=== PATIENT | male | born 1935 | race Caucasian/White ===

== ENCOUNTER 2017-03-30 10:09 | Emergency (ER) | payer MEDICARE ==
[~2017-03-30] VITALS: Ht 167.6 cm; Wt 72.6 kg
[2017-03-30] MEDS ORDERED: SAXA2.5T PO (11:44)
[2017-03-30] MEDS ORDERED: Ferrous Sulfat325 MG PO (11:45)
[2017-03-30] MEDS ORDERED: SPIR25 PO (11:47)
[2017-03-30] MEDS ORDERED: Omeprazole20 M1 PO (11:49)
[2017-03-30] MEDS ORDERED: Robaxin500 MG PO (13:00)
[2017-03-30] MEDS ORDERED: Acetaminophen-1 EAC1 PO (13:00)
[2017-03-30] MEDS ORDERED: METPRE4DP PO (13:00)
== END 2017-03-30 13:17 | disposition home or self-care (01) ==
LOC: ER 10:09
DX: M54.16 Radiculopathy, lumbar region (principal); Z91.011 Allergy to milk products; Z79.899 Other long term (current) drug therapy
CPT/HCPCS: 72100; 99284

== ENCOUNTER 2018-12-05 12:54 | Inpatient (IN) | payer MEDICARE ==
[~2018-12-05] VITALS: Ht 175.3 cm; Wt 68.0 kg
[~2018-12-05 12:54] MED LIST: Acetaminophen-1 EAC1 PO; Ferrous Sulfat325 MG PO; METPRE4DP PO; Omeprazole20 M1 PO; Robaxin500 MG PO; SAXA2.5T PO; SPIR25 PO
[2018-12-05 13:24] LABS: BASOPHILS ABSOLUTE AUTO 0.05 K/mm3 (0.00-0.23); BASOPHILS PERCENT AUTO 1 % (0-2); EOSINOPHILS ABSOLUTE AUTO 0.07 K/mm3 (0.00-0.68); EOSINOPHILS PERCENT AUTO 1 % (0-6); Hematocrit 30.2 % (37.0-53.0); Hemoglobin 8.3 g/dL (13.5-17.5); IMMATURE GRAN ABSOLUTE AUTO 0.04 K/mm3 (0.00-0.10); IMMATURE GRAN PERCENT AUTO 1 % (0-1); LYMPHOCYTES ABSOLUTE AUTO 0.49 K/mm3 (0.84-5.20); LYMPHOCYTES PERCENT AUTO 6 % (21-46); MONOCYTES ABSOLUTE AUTO 0.65 K/mm3 (0.16-1.47); MONOCYTES PERCENT AUTO 8 % (4-13); Mean Corpuscular HGB 20.3 pg (26.0-34.0); Mean Corpuscular HGB Conc 27.5 g/dL (31.5-36.5); Mean Corpuscular Volume 74 fL (80-100); NEUTROPHILS ABSOLUTE AUTO 6.67 K/mm3 (1.96-9.15); NEUTROPHILS PERCENT AUTO 84 % (41-73); RDW Coefficient Variation 19.6 % (11.7-14.2); RDW Standard Deviation 52.5 fL (35.1-46.3); Red Blood Cell Count 4.08 M/mm3 (4.30-5.90); White Blood Cell Count 7.97 K/mm3 (4.00-11.30)
[2018-12-05 13:27] LABS: Platelet Count 138 K/mm3 (150-400)
[2018-12-05 13:43] LABS: Alanine Aminotransfer (ALT/SGP 15 U/L (12-78); Albumin, Blood 3.5 g/dL (3.4-5.0); Albumin/Globulin Ratio 0.9 (0.8-1.8); Alk Phos 70 U/L (50-136); Anion Gap 9 mmol/L (6-16); Aspartate Aminotrans (AST/SGOT 21 U/L (12-37); Bilirubin, Total 0.8 mg/dL (0.1-1.0); Blood Urea Nitrogen 15 mg/dL (8-24); Bun/Creatinine Ratio 13.2 (12.0-20.0); CO2, Blood 19 mmol/L (21-32); Calcium, Blood 8.6 mg/dL (8.5-10.1); Chloride, Blood 106 mmol/L (98-108); Creatinine, Blood 1.14 mg/dL (0.60-1.20); Globulin, Blood 3.8 g/dL (2.2-4.0); Glomerular Filtration Rate >60 (60-); Glucose, Blood 210 mg/dL (70-99); Potassium, Blood 3.8 mmol/L (3.5-5.5); Sodium, Blood 134 mmol/L (136-145); Total Protein, Blood 7.3 g/dL (6.4-8.2)
--- NOTE | 2018-12-05 16:34 | NUR ---
Echocardiogram using 0.45ml of Definity contrast performed.
[2018-12-05 17:29] LABS: Thyroid Stimulating Hormone 2.6 uIU/mL (0.360-4.800)
--- NOTE | 2018-12-05 18:00 | NUR ---
SHIFT SUMMARY: PT ARRIVED TO ROOM FROM ER VIA STRETCHER AND WAS ASSISTED TO BED. PT DISPLAYED SHORTNESS OF BREATH BUT HIS O2 SATURATIONS WERE IN THE HIGH 90'S. SKIN TONE WAS PALE. PT IS A/O X 4 AND ANSWERS ALL QUESTIONS APPROPRIATELY, HE DENIES PAIN. PT WAS ORIENTED TO HIS ROOM, CALL LIGHT AND NURSING STAFF. HE IS ABLE TO MAKE NEEDS KNOWN. PT IS RESTING IN BED.
--- NOTE | 2018-12-06 05:57 | NUR ---
SHIFT SUMMARY PT RECIEVED 1 UNIT PRBCs W/O DIFFICULTY. VSS, NO SIGNS OF ADVERSE REACTION INDICATED. LUNG BASES WITH CRACKLES BEFORE TRANSFUSION AND AFTER, HOWEVER, HAVE DECREASED T/O NIGHT. PT WITH GOOD URINARY OUTPUT, SEE I/O. PT USES PENILE CLAMP TO CONTROL INCONTINENCE R/T PANCREATIC CANCER. MANAGES INDEPENDENTLY. PT ON 2L VIA NC FOR COMFORT. PT REPORTS FEELING " SO MUCH BETTER", AND IS NOT SOB. ABLE TO AMBULATE TO BSC WITHOUT BECOMING SOB. O2 SATS REMAIN WNL. NO EDEMA NOTED. CRITICALLY HIGH TROPONIN TONIGHT OF 2.96, PT ASYMPTOMATIC, NO TELEMETRY CHANGES. KOFI JIANG NOTIFIED AND NO NEW ORDERS GIVEN. WILL CONT TO MONITOR AND PROVIDE CARE UNTIL PRESUMED BY ONCOMING RN.
[2018-12-06 07:26] LABS: BASOPHILS ABSOLUTE AUTO 0.04 K/mm3 (0.00-0.23); BASOPHILS PERCENT AUTO 1 % (0-2); EOSINOPHILS ABSOLUTE AUTO 0.17 K/mm3 (0.00-0.68); EOSINOPHILS PERCENT AUTO 4 % (0-6); Hematocrit 30.8 % (37.0-53.0); IMMATURE GRAN ABSOLUTE AUTO 0.02 K/mm3 (0.00-0.10); IMMATURE GRAN PERCENT AUTO 0 % (0-1); LYMPHOCYTES ABSOLUTE AUTO 0.89 K/mm3 (0.84-5.20); LYMPHOCYTES PERCENT AUTO 18 % (21-46); MONOCYTES ABSOLUTE AUTO 0.59 K/mm3 (0.16-1.47); MONOCYTES PERCENT AUTO 12 % (4-13); Mean Corpuscular HGB 20.6 pg (26.0-34.0); Mean Corpuscular HGB Conc 29.2 g/dL (31.5-36.5); NEUTROPHILS ABSOLUTE AUTO 3.13 K/mm3 (1.96-9.15); NEUTROPHILS PERCENT AUTO 65 % (41-73); Platelet Count 97 K/mm3 (150-400); RDW Coefficient Variation 19.1 % (11.7-14.2); RDW Standard Deviation 48.2 fL (35.1-46.3); Red Blood Cell Count 4.36 M/mm3 (4.30-5.90); White Blood Cell Count 4.84 K/mm3 (4.00-11.30)
[2018-12-06 07:28] LABS: Mean Corpuscular Volume 71 fL (80-100)
[2018-12-06 08:01] LABS: Anion Gap 9 mmol/L (6-16); Blood Urea Nitrogen 15 mg/dL (8-24); CO2, Blood 21 mmol/L (21-32); Calcium, Blood 8.5 mg/dL (8.5-10.1); Chloride, Blood 109 mmol/L (98-108); Creatinine, Blood 1.07 mg/dL (0.60-1.20); Glomerular Filtration Rate >60 (60-); Glucose, Blood 115 mg/dL (70-99); Potassium, Blood 3.6 mmol/L (3.5-5.5); Sodium, Blood 139 mmol/L (136-145)
--- NOTE | 2018-12-06 18:10 | NUR ---
NO ACUTE CHANGES NOTED. PATIENT IS FEELING MUCH BETTER, HE WAS UP AND AMBULATING IN THE HALLS.SOME SHORTNESS OF BREATH STILL NOTED BUT HE STATES HE IS FEELING MUCH BETTER. NO OTHER ISSUES NOTED. WILL CONTINUE TO MONITOR FOR CHANGES.
[2018-12-07 04:45] LABS: BASOPHILS ABSOLUTE AUTO 0.03 K/mm3 (0.00-0.23); BASOPHILS PERCENT AUTO 1 % (0-2); EOSINOPHILS ABSOLUTE AUTO 0.25 K/mm3 (0.00-0.68); EOSINOPHILS PERCENT AUTO 4 % (0-6); Hematocrit 31.8 % (37.0-53.0); Hemoglobin 9.1 g/dL (13.5-17.5); IMMATURE GRAN ABSOLUTE AUTO 0.01 K/mm3 (0.00-0.10); IMMATURE GRAN PERCENT AUTO 0 % (0-1); LYMPHOCYTES ABSOLUTE AUTO 0.88 K/mm3 (0.84-5.20); LYMPHOCYTES PERCENT AUTO 14 % (21-46); MONOCYTES ABSOLUTE AUTO 0.78 K/mm3 (0.16-1.47); MONOCYTES PERCENT AUTO 13 % (4-13); Mean Corpuscular HGB 20.9 pg (26.0-34.0); Mean Corpuscular HGB Conc 28.6 g/dL (31.5-36.5); Mean Corpuscular Volume 73 fL (80-100); NEUTROPHILS ABSOLUTE AUTO 4.15 K/mm3 (1.96-9.15); NEUTROPHILS PERCENT AUTO 68 % (41-73); Platelet Count 118 K/mm3 (150-400); RDW Coefficient Variation 19.5 % (11.7-14.2); RDW Standard Deviation 50.8 fL (35.1-46.3); Red Blood Cell Count 4.36 M/mm3 (4.30-5.90)
[2018-12-07 05:08] LABS: Bun/Creatinine Ratio 15.3 (12.0-20.0); Calcium, Blood 8.7 mg/dL (8.5-10.1); Creatinine, Blood 1.31 mg/dL (0.60-1.20); Potassium, Blood 3.5 mmol/L (3.5-5.5)
--- NOTE | 2018-12-07 05:31 | NUR ---
SHIFT SUMMARY NO ACUTE EVENTS OVERNIGHT. PT IS A&OX4, INDEPENDENT IN RM. DYSPNEA HAS SIGNIFICANTLY IMPROVED PER PT REPORT. PT IS NOT DYSPNEIC WITH MOVEMENT/EXERTION ANYMORE, NOT REQUIRING O2 VIA NC ANYMORE. LS DIM T/O. VSS. DENIES PAIN OR DISCOMFORT. 2L FR MAINTAINED. WILL CONT TO MONITOR AND PROVIDE CARE UNTIL PRESUMED BY ONCOMING RN.
--- NOTE | 2018-12-07 18:16 | NUR ---
SHIFT SUMMARY NO ACUTE CHANGES. PATIENT DENIES PAIN, NAUSEA, AND SHORTNESS OF BREATH. PATIENT STATES HE IS FEELING MUCH BETTER TODAY. PATIENT UP INDEPENDENT IN ROOM. PATIENT DECLINED TO WORK WITH PT TODAY BUT DID GO FOR WALK IN HALLWAY. PROBABALE DISCHARGE TOMORROW.
[2018-12-08 04:29] LABS: BASOPHILS ABSOLUTE AUTO 0.05 K/mm3 (0.00-0.23); BASOPHILS PERCENT AUTO 1 % (0-2); EOSINOPHILS ABSOLUTE AUTO 0.31 K/mm3 (0.00-0.68); EOSINOPHILS PERCENT AUTO 5 % (0-6); Hematocrit 31.3 % (37.0-53.0); Hemoglobin 9.1 g/dL (13.5-17.5); IMMATURE GRAN PERCENT AUTO 0 % (0-1); LYMPHOCYTES ABSOLUTE AUTO 1.02 K/mm3 (0.84-5.20); LYMPHOCYTES PERCENT AUTO 16 % (21-46); MONOCYTES ABSOLUTE AUTO 0.67 K/mm3 (0.16-1.47); MONOCYTES PERCENT AUTO 11 % (4-13); Mean Corpuscular HGB 21.3 pg (26.0-34.0); Mean Corpuscular HGB Conc 29.1 g/dL (31.5-36.5); Mean Corpuscular Volume 73 fL (80-100); NEUTROPHILS ABSOLUTE AUTO 4.36 K/mm3 (1.96-9.15); NEUTROPHILS PERCENT AUTO 68 % (41-73); Platelet Count 128 K/mm3 (150-400); RDW Coefficient Variation 19.8 % (11.7-14.2); RDW Standard Deviation 52.2 fL (35.1-46.3); Red Blood Cell Count 4.28 M/mm3 (4.30-5.90); White Blood Cell Count 6.41 K/mm3 (4.00-11.30)
[2018-12-08 04:45] LABS: Bun/Creatinine Ratio 19.5 (12.0-20.0); Creatinine, Blood 1.33 mg/dL (0.60-1.20); Magnesium, Blood 1.9 mg/dL (1.6-2.4); Potassium, Blood 3.6 mmol/L (3.5-5.5)
--- NOTE | 2018-12-08 05:06 | NUR ---
SHIFT SUMMARY NO ACUTE CHANGES TONIGHT. PT IS A&OX4, INDEPENDENT IN RM. AMBULATING HALLS. RESP E/U ON RA. TELE IN PLACE; A FIB WITH RATE RANGING FROM 90-130s. LS DIM. DENIES COUGH. DENIES PAIN. WILL CONT TO MONITOR AND PROVIDE CARE UNTIL PRESUMED BY ONCOMING RN.
[2018-12-08] MEDS ORDERED: FURO40 PO (11:28)
[2018-12-08] MEDS ORDERED: Aspirin EC81 MG PO (11:28)
[2018-12-08] MEDS ORDERED: Lopressor 25 mg25 MG PO (11:29)
--- NOTE | 2018-12-08 13:59 | NUR ---
PT DISCHARGED HOME, LEFT UNIT VIA WHEELCHAIR. IV REMOVED. DISCHARGE INSTRUCTIONS PROVIDED. RX FAXED TO [facility].
== END 2018-12-08 12:00 | disposition home or self-care (01) | DRG 280 ==
LOC: ER 12:54 → MEDS 12:55 → ENPENDDIS 12-08 11:03 → MEDS 12-08 12:00
PROVIDERS: Emergency Medicine; ADMIT Internal Medicine
PROC: 30233P1 Transfusion of Nonautologous Frozen Red Cells into Peripheral Vein, Percutaneous Approach (ICD-10-PCS; principal; 2018-12-06)
DX: I50.21 Acute systolic (congestive) heart failure (principal); I21.4 Non-ST elevation (NSTEMI) myocardial infarction; J96.01 Acute respiratory failure with hypoxia; J84.9 Interstitial pulmonary disease, unspecified; I42.0 Dilated cardiomyopathy; I99.8 Other disorder of circulatory system; Z66 Do not resuscitate; I48.91 Unspecified atrial fibrillation; K21.9 Gastro-esophageal reflux disease without esophagitis; I27.20 Pulmonary hypertension, unspecified; D50.0 Iron deficiency anemia secondary to blood loss (chronic); Z87.891 Personal history of nicotine dependence
CPT/HCPCS: 36415; 36430; 71046; 71250; 80048; 80053; 82607; 82728; 82746; 83540; 83550; 83735; 83880; 84443; 84484; 85025; 86850; 86900; 86901; 86923; 93005; 93010; 96365; 96375; 96376; 99285-25; C8929; C9113; G0378; J1940; P9016; Q9957

== ENCOUNTER 2018-12-12 11:40 | Inpatient (IN) | payer MEDICARE ==
[~2018-12-12] VITALS: Ht 175.3 cm; Wt 62.5 kg
[~2018-12-12 11:40] MED LIST changes: +Aspirin EC81 MG PO; +FURO40 PO; +Lopressor 25 mg25 MG PO
[2018-12-12 12:14] LABS: BASOPHILS ABSOLUTE AUTO 0.05 K/mm3 (0.00-0.23); BASOPHILS PERCENT AUTO 1 % (0-2); EOSINOPHILS ABSOLUTE AUTO 0.13 K/mm3 (0.00-0.68); EOSINOPHILS PERCENT AUTO 2 % (0-6); Hematocrit 32.5 % (37.0-53.0); Hemoglobin 9.3 g/dL (13.5-17.5); IMMATURE GRAN ABSOLUTE AUTO 0.01 K/mm3 (0.00-0.10); IMMATURE GRAN PERCENT AUTO 0 % (0-1); LYMPHOCYTES ABSOLUTE AUTO 0.91 K/mm3 (0.84-5.20); LYMPHOCYTES PERCENT AUTO 13 % (21-46); MONOCYTES ABSOLUTE AUTO 0.86 K/mm3 (0.16-1.47); MONOCYTES PERCENT AUTO 13 % (4-13); Mean Corpuscular HGB Conc 28.6 g/dL (31.5-36.5); Mean Corpuscular Volume 73 fL (80-100); NEUTROPHILS ABSOLUTE AUTO 4.83 K/mm3 (1.96-9.15); NEUTROPHILS PERCENT AUTO 71 % (41-73); Platelet Count 186 K/mm3 (150-400); RDW Coefficient Variation 19.8 % (11.7-14.2); RDW Standard Deviation 52.3 fL (35.1-46.3); Red Blood Cell Count 4.43 M/mm3 (4.30-5.90); White Blood Cell Count 6.79 K/mm3 (4.00-11.30)
[2018-12-12 12:29] LABS: Albumin, Blood 3.8 g/dL (3.4-5.0); Bilirubin, Total 0.9 mg/dL (0.1-1.0); Bun/Creatinine Ratio 16.8 (12.0-20.0); Calcium, Blood 8.9 mg/dL (8.5-10.1); Creatinine, Blood 1.31 mg/dL (0.60-1.20); Potassium, Blood 3.9 mmol/L (3.5-5.5); Total Protein, Blood 7.8 g/dL (6.4-8.2); Troponin I 0.247 ng/mL (0.000-0.040)
--- NOTE | 2018-12-12 16:38 | NUR ---
JUNCTIONAL TACH HOT STRIP MILL SUPERVISOR INFORMED THAT PATIENT IN JUCTIONAL TACH AT 120. DR. OVIEDO INFORMED, ORDERS GIVEN TO GIVE EVENING LOPRESSOR NOW.
--- NOTE | 2018-12-12 17:57 | NUR ---
SHIFT SUMMARY ED ADMIT THIS AFTERNOON. PATIENT DENIES PAIN, NAUSEA, AND SHORTNESS OF BREATH. PATIENT SETTLED INTO ROOM. DR CALLED FOR JUNCTIONAL TACH RHYTHM OF 120, EVENING LOPRESSOR GIVEN NOW PER DR. OVIEDO. PATIENT UP SBA IN ROOM. CALL LIGHT IN REACH.
[2018-12-13 05:21] LABS: BASOPHILS ABSOLUTE AUTO 0.03 K/mm3 (0.00-0.23); BASOPHILS PERCENT AUTO 1 % (0-2); EOSINOPHILS ABSOLUTE AUTO 0.16 K/mm3 (0.00-0.68); EOSINOPHILS PERCENT AUTO 3 % (0-6); Hematocrit 29.7 % (37.0-53.0); Hemoglobin 8.6 g/dL (13.5-17.5); IMMATURE GRAN ABSOLUTE AUTO 0.02 K/mm3 (0.00-0.10); IMMATURE GRAN PERCENT AUTO 0 % (0-1); LYMPHOCYTES PERCENT AUTO 18 % (21-46); MONOCYTES ABSOLUTE AUTO 0.68 K/mm3 (0.16-1.47); MONOCYTES PERCENT AUTO 14 % (4-13); Mean Corpuscular HGB 21.3 pg (26.0-34.0); Mean Corpuscular Volume 74 fL (80-100); Mean Platelet Volume 11.3 fL (9.1-12.4); NEUTROPHILS ABSOLUTE AUTO 3.23 K/mm3 (1.96-9.15); NEUTROPHILS PERCENT AUTO 64 % (41-73); Platelet Count 135 K/mm3 (150-400); RDW Coefficient Variation 19.5 % (11.7-14.2); RDW Standard Deviation 51.8 fL (35.1-46.3); Red Blood Cell Count 4.04 M/mm3 (4.30-5.90); White Blood Cell Count 5.02 K/mm3 (4.00-11.30)
--- NOTE | 2018-12-13 05:34 | NUR ---
SHIFT SUMMARY PT CONTINUED TO REPORT THAT HE FELT SOB WHEN AWAKE, ESPECIALLY WITH ANY SORT OF EXERTION. HOWEVER, PT DID NOT APPEAR TO BE IN ANY RESPIRATORY DISTRESS. PT REMAINED ON RA WITH O2 SATS IN THE MID TO HIGH 90'S. TELEMETRY IN PLACE. PT JUNTIONAL TO JUNCTIONAL TACH THROUGHOUT THE NIGHT. WITH RATE MOSTLY IN THE LOW 100'S. PT INDEPENDENTLY USES PENILE CLAMP TO PREVENT INCONTINENCE. PT AMBULATES INDEPENDENTLY IN THE ROOM. VITAL SIGNS STABLE. NO COMPLAINTS OF PAIN. NO ACUTE CHANGES. WILL CONTINUE TO MONITOR.
[2018-12-13 05:45] LABS: Magnesium, Blood 2.2 mg/dL (1.6-2.4)
[2018-12-13 05:48] LABS: Albumin, Blood 3.4 g/dL (3.4-5.0); Albumin/Globulin Ratio 0.9 (0.8-1.8); Bilirubin, Total 0.9 mg/dL (0.1-1.0); Bun/Creatinine Ratio 18.3 (12.0-20.0); Calcium, Blood 8.7 mg/dL (8.5-10.1); Creatinine, Blood 1.26 mg/dL (0.60-1.20); Globulin, Blood 3.8 g/dL (2.2-4.0); Potassium, Blood 3.7 mmol/L (3.5-5.5); Total Protein, Blood 7.2 g/dL (6.4-8.2)
--- NOTE | 2018-12-13 16:00 | NUR ---
SHIFT SUMMARY NO ACUTE CHANGES. PATIENT DENIES PAIN AND NAUSEA. PATIENT REPORTS DYSPNEA DESPITE OXYGEN SATURATION ABOVE 95% ON ROOM AIR. PATIENT PLACED ON 2L NC FOR COMFORT. PATIENT UP INDEPENDENT IN THE ROOM. CARDIAC CONSULT CALLED IN. CALL LIGHT IN REACH.
--- NOTE | 2018-12-13 18:41 | NUR ---
PATIENT REFUSING CARE/LEAVING AMA PATIENT HAS REMOVED TELEMETRY, OXIMETRY, REQUESTED IV BE REMOVED OR HE WILL PULL IT HIMSELF, AND WOULD LIKE TO LEAVE AMA IN THE MORNING BECAUSE HE CANNOT FIND A RIDE THIS EVENING. DR. COYNE INFORMED OF PATIENT'S STATEMENTS AND REQUESTS. PATIENT STATES HE APPRECIATES OUR EFFORTS TO CARE FOR HIM BUT DOES NOT DESIRE IT ANY LONGER. PALLIATIVE CARE NURSE CONSULTED, PALLIATIVE CARE WILL TRY TO SEE PATIENT IN THE MORNING.
--- NOTE | 2018-12-13 23:22 | NUR ---
2000 PT REFUSING ALL CARE TO INCLUDE EVENING MEDICATIONS, STATED, "IM JUST GOING BACK HOME IN AM AND JUST WANT TO BE THERE"!
--- NOTE | 2018-12-14 05:34 | NUR ---
SHIFT SUMMARY: 83 Y/O MALE RESTED COMFORTABLY ALL SHIFT, REFUSED ALL CARE TO INCLUDE MEDICATIONS, VITAL SIGNS AND ALL CARE, INTENDS TO SIGN OUT OF HOSPITAL AMA TODAY WHEN DAUGHTER ARRIVES TO [facility] [employer].
--- NOTE | 2018-12-14 09:04 | NUR ---
PT IN BTHRM GETTING DRESSED TO GO AMA, DURING SHIFT REPORT. PT REFUSING AM MEDS. DR COYNE HERE TO SEE PT. PT WANTING TO GO HOME. DOES NOT WANT TO TAKE ANY MEDICATION; AM MEDS NOT GIVEN. DR COYNE GAVE VERBAL ORDER FOR PALLATIVE CARE TO SEE PT NOW. PT WANTING TO GO HOME ON HOSPICE. MARU ACUNA CALLED AND CAME TO ; SPOKE WITH DR COYNE FIRST AND NOW WITH PT.
--- NOTE | 2018-12-14 12:03 | NUR ---
INITIAL PAL CARE VISIT MADE AROUND 0900 PRIOR TO PT'S DC THIS AM PER RN/MD REQUEST. UPON ARRIVAL IS IN ROOM WITH PT. CASE CONFERENCED WITH RN AND THEN MD RE: PT'S CURRENT STATUS, PROBLEM LIST AND DESIRE TO FORGO ANY TREATMENT FOR HIS CHF, PULM HTN, CAD, GERD, CKD, TACHYCARDIA. LONG VISIT WITH PT IN ROOM TO DETERMINE HIS GOALS OF CARE. PT IN HIS OWN CLOTHES AND READY TO GO HOME TO [facility] IN [place] WHERE HE LIVES. HE APPEARS VERY THIN, WITH LONG HAIR UNDER A CAP, DISHEVELED AND SMELLING STRONGLY OF URINE. HE CONFIRMS THAT HE DOES NOT WISH TO BE TESTED FURTHER OR TREATED FOR ANY OF HIS CHRONIC ILLNESSES. HE IS 83 AND HAS COMPLETED A POLST PREVIOUSLY STATING DNR, COMFORT MEASURES ONLY. HE GIVES ME A HX OF HIS FREQUENT STAYS HERE RECENTLY, EACH TIME A RESULT OF HIM CALLING 911 FROM HOME. HE STATES HE FEELS THE TREATMENT/PILLS PRESCRIBED ARE MAKING HIM MORE SICK AND RUINING HIS APPETITE. HE WANTS TO GET BETTER AND STRONGER WITH NO TREATMENT. I REVIEWED MULTIPLE TIMES WITH HIM THAT BY CALLING 911 HE IS REQUESTING TREATMENT. THAT EMS ARE REQUIRED TO STABILIZE, TREAT AND TRANSPORT IF THEY ARE CALLED. HE VERBALIZES UNDERSTANDING AND SAYS "WELL, AT THAT MOMENT I DID WANT HELP". PT DOESN'T HAVE GOOD INSIGHT INTO THE CONFLICTING STATEMENTS AND REQUESTS HE IS MAKING REGARDING HIS CARE. HE IS ABLE TO TALK WITH ME, QUITE ENERGETICALLY, SLIGHT SOB NOTED BUT NO NEED FOR HIM TO STOP AND PAUSE FOR BREATH. HE IS ON ROOM AIR. WE AGAIN TALKED AT [facility] ABOUT MANAGEMENT OF HIS CHRONIC ILLNESS AND TRYING TO KEEP HIS S/S MANAGED AND HIM COMORTABLE. HE WOULD BE AGREEABLE TO A VISITING NURSE THRU HH OR HOSPICE AT HIS . I AM UNCERTAIN THAT HE MEETS HOSPICE CRITERIA AT THIS TIME BUT IF HE CONTINUES TO REFUSE TREATMENT FOR HIS CHF, CKD, PULM HTN, TACHYCARDIA AND GERD, THAT MAY CHANGE IN THE NEAR FUTURE. PT GIVES ME REPORT AND CONTACT INFO ON HIS THREE LOCAL CHILDREN. HE STATES CHELSEA IS THE ONLY RELIABLE ONE AT THIS TIME FOR ASSISTANCE AND VISITS. ALL CONTACT INFO FOR JOEY AND HIS PHYSICAL ADDRESS SENT TO CARE MANAGAEMENT FOR ASSIST [facility] OR HH ARRANGEMENTS ON SUNDAY. PT AND NGHIA INFORMED THAT THEY MAY NOT HAVE CONTACT FROM HH/ UNTIL EARLY TO MID WEEK. PT VERBALIZES UNDERSTANDING AND REITERATES HIS DESIRE TO GO HOME SHARI "TO THERE". ENCOURAGED HIM TO CALL HH/H AGENCY, NURSE OR FAMILY INSTEAD OF 911 IF HE DOES NOT WANT TO RETURN TO THE HOSPITAL SETTING AND TO TREATMENT BEING DONE ON HIM. HE VERBALIZED UNDERSTANDING BUT I BELIEVE PT WILL CONTINUE TO CALL 911 WHEN S/S ARE EXACERBATED UNLESS SIGNIFICANT ADDED SUPPORT IS AVAILABLE TO HIM IN THE HOME.
--- NOTE | 2018-12-14 13:59 | NUR ---
SHIFT SUMMARY PT SITTING IN CHAIR AT WITH DAUGHTER. DR COYNE, PALLATIVE CARE RN, AND RN ICU ALL SPOKE WITH PT TO EDUCATE PT ON CARE NEEDED AND OPTIONS IF REFUSING FURTHER CARE. PT INSISTANT ON GOING AMA AND NOT WANTING TO RECEIVE ANY FURTHER TX OR WAITING FOR D/C ORDERS. PT'S DAUGHTER ALSO ATTEMPTED MANY TIMES TO EDU AND CLARIFY WISHES. PT WANTING TO GO HOME ON HOSPICE, BUT YET REPORTS THAT HE WILL CALL 911 IF HE STARTS FEELING BAD. PT IS VERY DIFFICULT TO REASON WITH; REFUSES ALL TREATMENT WHEN HERE, BUT CALLS FOR HELP WHEN NONCOMPLIANT. RN ICU ASSISTED PT WITH AMA FORM AND PT WALKED OUT WITH DAUGHTER, PER HIS WISHES. PT REFUSED ALL AM MEDICATIONS, HAD ALREADY REMOVED TELE MX AND IV SITE.
== END 2018-12-14 10:00 | disposition left against medical advice (07) | DRG 291 ==
LOC: ER 11:40 → MEDS 11:41
PROVIDERS: Emergency Medicine; ADMIT Internal Medicine
DX: I13.0 Hypertensive heart and chronic kidney disease with heart failure and stage 1 through stage 4 chronic kidney disease, or unspecified chronic kidney disease (principal); I50.23 Acute on chronic systolic (congestive) heart failure; I48.20 Chronic atrial fibrillation, unspecified; N17.9 Acute kidney failure, unspecified; N18.2 Chronic kidney disease, stage 2 (mild); I27.20 Pulmonary hypertension, unspecified; K21.9 Gastro-esophageal reflux disease without esophagitis; Z91.14 Patient's other noncompliance with medication regimen; I25.10 Atherosclerotic heart disease of native coronary artery without angina pectoris; K57.90 Diverticulosis of intestine, part unspecified, without perforation or abscess without bleeding; Z87.891 Personal history of nicotine dependence; Z66 Do not resuscitate; D64.9 Anemia, unspecified; I25.5 Ischemic cardiomyopathy
CPT/HCPCS: 36415; 71046; 80053; 83735; 83880; 84484; 85025; 93005; 93010; 94762; 96372; 96374; 96376; 99285-25; G0378; J1650; J1940